=== PATIENT | female | born 1990 | race Caucasian/White ===

== ENCOUNTER 2024-06-17 13:15 | Outpatient (CLI) | payer BC, SELFPAY | END 2024-06-17 23:59 | disposition home or self-care (01) | LOC: LAB.DROPOF 06-20 11:15 | PROVIDERS: PCP Student in an Organized Health Care Education/Training Program; Visit Provider Student in an Organized Health Care Education/Training Program | DX: R30.0 Dysuria (principal); R35.0 Frequency of micturition; R10.9 Unspecified abdominal pain | CPT/HCPCS: 87086; 87088 ==